=== PATIENT | female | born 1955 | race Caucasian/White ===

== ENCOUNTER 2017-10-03 22:56 | Inpatient (IN) | payer OTHER ==
[~2017-10-03] VITALS: Ht 162.6 cm; Wt 106.9 kg
[~2017-10-03 22:56] MED LIST: MULT-257 PO
[2017-10-03] MEDS ORDERED: SODIUM CHLORIDE FLUSH 10ML SYR IVF ONE (23:30)
[2017-10-03] MEDS ORDERED: ONDANSETRON 2MG/ML, 2ML ONE (23:36)
[2017-10-03] MEDS ORDERED: MORPHINE SULFATE 4 MG/ML, 1ML ONE (23:37)
[2017-10-03] MEDS ORDERED: ASPIRIN 81 MG TABLET CHEW ONE (23:37)
[2017-10-03 23:55] LABS: BASOPHILS # (AUTO) 0.02 x10^3/uL (0-0.1); BASOPHILS % (AUTO) 0 % (0-1); EOSINOPHILS # (AUTO) 0.06 x10^3/uL (0-0.4); EOSINOPHILS % (AUTO) 0 % (1-7); LYMPHOCYTES # (AUTO) 1.76 x10^3/uL (1-3.4); LYMPHOCYTES % (AUTO) 10 % (22-44); MD NO; MEAN CORPUSCULAR HEMOGLOBIN 31.4 pg (27.0-34.8); MEAN CORPUSCULAR HGB CONC 33.7 g/dL (32.4-35.8); MEAN CORPUSCULAR VOLUME 93.3 fL (80-100); MEAN PLATELET VOLUME 8.3 fL (7.4-10.4); MONOCYTES # (AUTO) 1.17 x10^3/uL (0.2-0.8); MONOCYTES % (AUTO) 7 % (2-9); NEUTROPHILS # (AUTO) 15.02 x10^3/uL (1.8-6.8); NEUTROPHILS % (AUTO) 83 % (42-75); PLATELET COUNT 316 x10^3/uL (130-400); RED BLOOD COUNT 4.93 x10^6/uL (3.82-5.3); RED CELL DISTRIBUTION WIDTH 13.6 % (9.6-15.2)
[2017-10-04] MEDS ORDERED: MORPHINE SULFATE 4 MG/ML, 1ML IVPush ONE
[2017-10-04] MEDS ORDERED: SODIUM CHLORIDE 0.9%, 500ML IVBOLUS ONE
[2017-10-04] MEDS ORDERED: ASPIRIN 81 MG TABLET CHEW PO ONE
[2017-10-04] MEDS ORDERED: ONDANSETRON 2MG/ML, 2ML IVPush ONE
[2017-10-04 00:05] LABS: INTERNATIONAL NORMALIZED RATIO 0.96 (0.93-1.1)
[2017-10-04 00:07] LABS: ALANINE AMINOTRANSFERASE 55 U/L (12-78); ANION GAP 11 mmol/L (5-15); CALCIUM 8.8 mg/dL (8.5-10.1); CHLORIDE 108 mmol/L (98-107); CREATININE 0.79 mg/dL (0.55-1.02)
[2017-10-04 00:11] LABS: ALKALINE PHOSPHATASE 122 U/L (45-117); TOTAL PROTEIN 8.6 g/dL (6.4-8.2); TROPONIN I < 0.015 ng/mL (0.000-0.045)
[2017-10-04 00:16] LABS: BILIRUBIN,TOTAL 0.7 mg/dL (0.2-1.0)
[2017-10-04] MEDS ORDERED: SODIUM CHLORIDE 0.9% 1,000ML IVBOLUS ONE (01:00)
[2017-10-04 01:30] LABS: RAPID INFLUENZA A Negative (Negative); RAPID INFLUENZA B Negative (Negative)
[2017-10-04] MEDS ORDERED: CEFTRIAXONE PMX 1GM/50ML 50 ML IV ONE (02:00)
[2017-10-04] MEDS ORDERED: AZITHROMYCIN 500 MG in SODIUM CHLORIDE 0.9% 250 ML IV ONE (02:00)
[2017-10-04] MEDS ORDERED: CEFTRIAXONE PMX 1GM/50ML 50 ML ONE (02:04)
[2017-10-04] MEDS ORDERED: OXYcodone/APAP 5/325MG TABLET ONE (02:16)
[2017-10-04] MEDS ORDERED: OXYcodone/APAP 5/325MG TABLET PO ONE (02:30)
[2017-10-04] MEDS: CEFTRIAXONE PMX 2GM/50ML 50 ML IV SCH (03:00)
[2017-10-04] MEDS ORDERED: POLYETHYLENE GLYCOL 17 GM PACKET PO PRN (03:00)
[2017-10-04] MEDS ORDERED: ENALAPRILAT 1.25 MG/ML, 2ML IVPush PRN (03:00)
[2017-10-04] MEDS ORDERED: BISACODYL 10 MG SUPP PR PRN (03:00)
[2017-10-04] MEDS ORDERED: hydrALAzine 20 MG/ML, 1ML IVPush PRN (03:00)
[2017-10-04 03:14] LABS: FREE T4 (FREE THYROXINE) 1.27 ng/dL (0.76-1.46); HEMOGLOBIN A1C 5.8 % (4.2-6.3); THYROID STIMULATING HORMONE 0.53 mIU/L (0.358-3.740)
[2017-10-04] MEDS: HEPARIN 5,000 UNITS/ML, 1ML SQ SCH ×3 (03:48→20:22)
[2017-10-04] MEDS: GUAIFENESIN ER 600 MG TABLET PO SCH ×2 (03:48→15:39)
[2017-10-04 04:16] VITALS: BP 155/79
[2017-10-04] MEDS: SODIUM CHLORIDE 0.9% 1,000 ML IV SCH ×2 (04:59→13:29)
[2017-10-04] MEDS: morphine SULFATE 10 MG/ML, 1ML IVPush PRN ×5 (05:06→23:13)
[2017-10-04] MEDS ORDERED: OMNIPAQUE 350 MG/ML, 100ML BOTTLE ONE (05:15)
[2017-10-04] MEDS: ALBUTEROL/IPRATROPIUM 2.5MG/0.5MG, 3 ML NPPB SCH ×4 (07:20→19:32)
[2017-10-04 07:30] VITALS: BP 117/69
[2017-10-04] MEDS: OXYcodone IR 5MG TABLET PO PRN ×3 (07:47→19:30)
[2017-10-04] MEDS: SENNA/DOCUSATE TABLET PO SCH (08:53)
[2017-10-04] MEDS: LOSARTAN 50MG TABLET PO SCH (08:53)
[2017-10-04 09:18] LABS: MICROSCOPIC AUTO
[2017-10-04] MEDS: ONDANSETRON 2MG/ML, 2ML IVPush PRN ×2 (09:18→19:27)
[2017-10-04 09:19] LABS: CULTURE INDICATED? NO
[2017-10-04] MEDS ORDERED: OXYC5CAP2 PO (12:39)
[2017-10-04] MEDS ORDERED: TOLT4CAP12 PO (12:39)
[2017-10-04] MEDS ORDERED: METO-282 PO (12:39)
[2017-10-04 14:17] VITALS: BP 109/57
[2017-10-04] MEDS ORDERED: TEMAZEPAM 15 MG CAPSULE PO PRN (16:00)
[2017-10-04] MEDS: ACETAMINOPHEN 325 MG TABLET PO PRN (19:30)
[2017-10-04 20:15] VITALS: BP 142/77
[2017-10-04] MEDS ORDERED: AZITHROMYCIN 500 MG in SODIUM CHLORIDE 0.9% 250 ML IV SCH (23:00)
[2017-10-05 01:25] VITALS: BP 140/75
[2017-10-05] MEDS: GUAIFENESIN ER 600 MG TABLET PO SCH (02:54)
[2017-10-05] MEDS: CEFTRIAXONE PMX 2GM/50ML 50 ML IV SCH (02:54)
[2017-10-05 05:26] LABS: BASOPHILS # (AUTO) 0.05 x10^3/uL (0-0.1); BASOPHILS % (AUTO) 1 % (0-1); EOSINOPHILS # (AUTO) 0.14 x10^3/uL (0-0.4); EOSINOPHILS % (AUTO) 2 % (1-7); LYMPHOCYTES # (AUTO) 1.91 x10^3/uL (1-3.4); LYMPHOCYTES % (AUTO) 22 % (22-44); MD NO; MEAN CORPUSCULAR HEMOGLOBIN 31.6 pg (27.0-34.8); MEAN CORPUSCULAR HGB CONC 33.3 g/dL (32.4-35.8); MEAN CORPUSCULAR VOLUME 94.9 fL (80-100); MEAN PLATELET VOLUME 8.5 fL (7.4-10.4); MONOCYTES # (AUTO) 0.82 x10^3/uL (0.2-0.8); MONOCYTES % (AUTO) 9 % (2-9); NEUTROPHILS # (AUTO) 5.78 x10^3/uL (1.8-6.8); NEUTROPHILS % (AUTO) 66 % (42-75); PLATELET COUNT 213 x10^3/uL (130-400); RED BLOOD COUNT 3.84 x10^6/uL (3.82-5.3); RED CELL DISTRIBUTION WIDTH 14.1 % (9.6-15.2)
[2017-10-05] MEDS: HEPARIN 5,000 UNITS/ML, 1ML SQ SCH ×2 (05:29→12:00)
[2017-10-05 05:38] LABS: ALANINE AMINOTRANSFERASE 33 U/L (12-78); ALBUMIN 2.9 g/dL (3.4-5.0); ANION GAP 8 mmol/L (5-15); CALCIUM 8.1 mg/dL (8.5-10.1); CHLORIDE 107 mmol/L (98-107); CHOLESTEROL, TOTAL 121 mg/dL (140-239); CREATININE 0.61 mg/dL (0.55-1.02); TRIGLYCERIDES 84 mg/dL (50-200); VLDL CHOLESTEROL 17 mg/dL (0-25)
[2017-10-05 05:40] LABS: ALKALINE PHOSPHATASE 84 U/L (45-117); BILIRUBIN,TOTAL 0.4 mg/dL (0.2-1.0); CHOL/HDL RATIO 2.4; HDL CHOL % 42 % (28-40); HDL CHOLESTEROL (DIRECT) 51 mg/dL (40-60); LDL CHOLESTEROL,CALCULATED 53 mg/dL (54-169); TOTAL PROTEIN 6.5 g/dL (6.4-8.2)
[2017-10-05] MEDS: ALBUTEROL/IPRATROPIUM 2.5MG/0.5MG, 3 ML NPPB SCH ×2 (07:37→10:15)
[2017-10-05 07:48] VITALS: BP 148/81
[2017-10-05] MEDS: SENNA/DOCUSATE TABLET PO SCH (08:17)
[2017-10-05] MEDS: LOSARTAN 50MG TABLET PO SCH (08:17)
[2017-10-05] MEDS ORDERED: KETOROLAC 30 MG/1 ML IVPush SCH ×2 (10:00)
[2017-10-05] MEDS: ACETAMINOPHEN 325 MG TABLET PO PRN (10:36)
[2017-10-05] MEDS ORDERED: CEFD300C37 PO (11:00)
[2017-10-05] MEDS ORDERED: DOXY100T PO (11:00)
[2017-10-05] MEDS ORDERED: IPRA3AMP NPPB (11:01)
[2017-10-05] MEDS ORDERED: PNEUMOCOCCAL 23 VACCINE IM-VACC ONE (13:00)
[2017-10-05 13:22] VITALS: BP 151/77
== END 2017-10-05 14:16 | disposition home or self-care (01) | DRG 871 ==
LOC: ED 23:59 → EDIP 10-04 02:10 → 4NOR 10-04 03:10
PROVIDERS: ADMIT Internal Medicine; ATTEND Internal Medicine
DX: A41.9 Sepsis, unspecified organism (principal); J15.9 Unspecified bacterial pneumonia; E87.2 Acidosis; G89.29 Other chronic pain; R35.0 Frequency of micturition; I10 Essential (primary) hypertension; Z82.3 Family history of stroke; Z90.49 Acquired absence of other specified parts of digestive tract
CPT/HCPCS: 36415; 71045; 71275; 80053; 80061; 81001; 83036; 83605; 83735; 83880; 84439; 84443; 84484; 85025; 85379; 85610; 85730; 87040; 87070; 87205; 87400; 90732; 93005; 94640; 96361; 96374; 96375; J0456; J0696; J1644; J1885; J2405; J7620; Q9967; J2270; J7030; J7040; J7050